=== PATIENT | male | born 1985 | race Asian ===

== ENCOUNTER 2024-04-12 10:54 | Emergency (ER) | payer OTHER ==
[~2024-04-12] VITALS: Ht 160 cm; Wt 58.0 kg
[2024-04-12 11:08] VITALS: BP 140/97; PULSE 98; RESP 18; TEMP 98.2; O2SAT 96
[2024-04-12] MEDS: FLUORESCEIN SODIUM 1MG/STRIP RIGHTEYE ONE (11:30)
[2024-04-12] MEDS ORDERED: AMOX1TAB16 MT (14:02)
== END 2024-04-12 14:43 | disposition home or self-care (01) ==
LOC: ER 10:54
DX: H10.89 Other conjunctivitis (principal); R51.9 Headache, unspecified; I10 Essential (primary) hypertension; Z98.890 Other specified postprocedural states
CPT/HCPCS: 70486; 99284